=== PATIENT | female | born 1940 | race Two or more races ===

== ENCOUNTER 2021-10-20 00:19 | Emergency (ER) | payer OTHER ==
[~2021-10-20] VITALS: Ht 152.4 cm; Wt 88.0 kg
[2021-10-20 02:42] LABS: Basophils # (auto) 0.1 10 ^3/uL (0-0.2); Basophils % (auto) 1.5 % (0.0-2.0); Eosinophils # (auto) 0.1 10 ^3/uL (0-0.8); Hematocrit 43.3 % (36.0-46.0); Hemoglobin 14.8 g/dL (12.2-16.2); Lymphocytes # (auto) 1.5 10 ^3/uL (0.4-5.4); Lymphocytes % (auto) 22.7 % (10.0-50.0); Mean Corpuscular Hemoglobin 30.2 pg (28.0-32.0); Mean Corpuscular Hgb Conc. 34.1 g/dL (32.0-36.0); Mean Corpuscular Volume 88.6 fL (80.0-100.0); Monocytes # (auto) 0.4 10 ^3/uL (0-1.3); Monocytes % (auto) 6.9 % (0.0-12.0); Neutrophils # (auto) 4.3 10 ^3/uL (1.6-8.6); Neutrophils % (auto) 66.9 % (37.0-80.0); Nucleated Red Blood Cells % 0.1 %; Red Blood Cells 4.89 10^6/uL (4.0-5.20); Red Cell Distribution Width 12.7 % (11.8-14.3); White Blood Cell 6.5 10^3/uL (4.4-10.8)
[2021-10-20 03:00] LABS: Albumin 3.7 g/dL (3.4-5.0); BUN/Creatinine Ratio 24.4; Calcium 9.1 mg/dL (8.5-10.1); Potassium 3.4 mmol/L (3.5-5.1)
[2021-10-20 03:03] LABS: Bilirubin, Total 0.4 mg/dL (0.2-1.0); Total Protein 7.4 g/dL (6.4-8.2)
[2021-10-20 03:14] LABS: Urine Bacteria FEW /hpf (None Seen); Urine Blood Negative /uL (Negative); Urine Hyaline Cast FEW /lpf (0 - 2); Urine Mucus FEW (None Seen); Urine Specific Gravity 1.015 (1.001-1.035); Urine WBC 86 /hpf (0 - 5)
[2021-10-20] MEDS ORDERED: cefTRIAXone 1GM/50ML D5W 50 ML IV ONE (07:45)
[2021-10-20] MEDS ORDERED: POTASSIUM EFFERVESENT TAB 25 MEQ PO ONE (07:45)
[2021-10-20] MEDS ORDERED: SODIUM CHLORIDE 0.9% 1,000 ML IV ONE (07:45)
[2021-10-20] MEDS ORDERED: CIPR-173 PO (14:26)
[2021-10-20 14:28] VITALS: BP 138/65
== END 2021-10-20 14:52 | disposition home or self-care (01) ==
LOC: ER 00:19 → EDBD 00:19 → ER 14:52
DX: R55 Syncope and collapse (principal); N39.0 Urinary tract infection, site not specified; E87.6 Hypokalemia; R74.8 Abnormal levels of other serum enzymes; I10 Essential (primary) hypertension; E78.5 Hyperlipidemia, unspecified; E03.9 Hypothyroidism, unspecified; Z90.49 Acquired absence of other specified parts of digestive tract; Z90.710 Acquired absence of both cervix and uterus
CPT/HCPCS: 36415; 70450; 71045; 80053; 81001; 83735; 83880; 84484; 85025; 93005; 96365; 96366; 99285; J0696; J7030

== ENCOUNTER 2024-09-28 16:22 | Inpatient (IN) | payer OTHER ==
[~2024-09-28] VITALS: Ht 157.5 cm; Wt 81.4 kg
[~2024-09-28 16:22] MED LIST: CIPR-173 PO
--- NOTE | 2024-09-28 16:35 | ED.PDOC ---
GI ASSESSMENT HPI Comments This is an 84-year-old female who comes in with chief complaint of abdominal pain since this morning. The patient states that the symptoms started at approximately 9:30 a.m. this morning. She does have a history of this in the past. The pain is in the lower abdominal area and was a 10/10. It is associated with some nausea and vomiting but she denies any blood in her stool and she states that she has been having some constipation. EN route, the patient was given acetaminophen 1 g IV piggyback and the pain went from a 10 down to a 1/10. The patient was also given Zofran 4 mg IV push for the nausea EN route. The patient does have a history of diverticulitis and states that the symptoms feels somewhat similar. Chief Complaint: Abdominal Pain Time Seen by MD: 16:23 Reviewed Notes: Nurses Notes, Chucking And Boring Machine Operator Notes, Medications, Allergies (Allergies listed above) Allergies: Coded Allergies: Penicillins (Verified Allergy, Unknown, 10/20/21) Uncoded Allergies: IV contrast (Allergy, Unknown, 10/20/21) Home Meds Active Scripts Ciprofloxacin Hcl (Cipro) 500 Mg Tab, 1 TAB PO BID for 7 Days, #14 TAB Prov:KRISTOPHER HAYES MD 10/20/21 Information Source: Patient, Emergency Med Personnel Mode of Arrival: EMS Timing: Hours Duration: Since onset Prehospital treatment: Field Nurse Case Manager, IVF, Other (Zofran 4 mg IV push EN route as well as Tylenol 1 g IV piggyback EN route) Quality: Aching, Cramping Vomitus: Bilious Stool: Other (Constipation) Severity: Moderate Recent: None Recent Hx of: None Pain Location: RLQ, LLQ Modifying Factors: Nothing Associated sign and symptoms: Nausea, Vomiting, Constipation, Abdominal Pain Past Medical History PAST MEDICAL HISTORY: High Lipids, HTN, Thyroid Past Medical History (Other): History of diverticulitis Surgical History: Appendectomy, Cholecystectomy, , Hysterectomy Surgical History (Other): Cataract surgery INVENTORY CONTROLLER History: Denies all INVENTORY CONTROLLER Hx Family History Family History: Family hx of Cancer, Family hx of heart tania Social History Smoker: Non-Smoker Alcohol: Rarely Drugs: Denies Drug Use Lives In: Home Constitutional: denies: chills, diaphoresis, fatigue, fever, malaise, sweats, weakness, others EENTM: denies: blurred vision, double vision, ear bleeding, ear discharge, ear drainage, ear pain, ear ringing, eye pain, eye redness, hearing loss, mouth pain, mouth swelling, nasal discharge, nose bleeding, nose congestion, nose pain, photophobia, tearing, throat pain, throat swelling, voice changes, others Respiratory: denies: cough, hemoptysis, orthopnea, SOB at rest, shortness of breath, SOB with excertion, stridor, wheezing, others Cardiovascular: denies: chest pain, dizzy spells, diaphoresis, Dyspnea on exertion, edema, irregular heart beat, left arm pain, lightheadedness, p alpitations, PND, syncope, others Gastrointestinal: reports: abdominal pain, constipated, nausea, vomiting; denies: abdomen distended, blood streaked bowels, diarrhea, dysphagia, difficulty swallowing, hematemesis, melena, poor appetite, poor fluid intake, rectal bleeding, rectal pain, others Genitourinary: denies: abnormal vagina bleeding, burning, dyspareunia, dysuria, flank pain, frequency, hematuria, incontinence, pain, , vagina discharge, urgency, others Neurological: denies: dizziness, fainting, headache, left sided numbness, left sided weakness, numbness, paresthesia, pre-existing deficit, right sided numbness, right sided weakness, seizure, speech problems, tingling, tremors, weakness, others Musculoskeletal: denies: back pain, gout, joint pain, joint swelling, muscle pain, muscle stiffness, neck pain, others Integumetry: denies: bruises, change in color, change in hair/nails, dryness, laceration, lesions, lumps, rash, wounds, others Allergic/Immunocompromised: denies: Difficulty Healing, Frequent Infections, Hives, Itching, others Hematologic/Lymphatic: denies: anemia, blood clots, easy bleeding, easy bruising, swollen glands, others Endocrine: denies: excessive hunger, excessive sweating, excessive thirst, excessive urination, flushing, intolerance to cold, intolerance to heat, unexplained weight gain, unexplained weight loss, others Psychiatric: denies: anxiety, bipolar disorder, depression, hopeless, panic disorder, schizophrenia, sleepless, suicidal, others Physical Exam General Appearance: Moderate Distress HEENT: Normal ENT Inspection, Pharynx Normal, TMs Normal Neck: Full Range of Motion, Non-Tender, Normal, Normal Inspection Respiratory: Chest Non-Tender, Lungs Clear, No Accessory Muscle Use, No Respiratory Distress, Normal Breath Sounds Cardiovascular: No Edema, No JVD, No Murmur, No Gallop, Normal Peripheral Pulses, Regular Rate/Rhythm Breast Exam: Deferred Gastrointestinal: LLQ, No Organomegaly, No Pulsatile Mass, Normal Bowel Sounds, RLQ, Soft, Tenderness Genitalia: Deferred Pelvic: Deferred Rectal: Deferred Extremities: No calf tenderness, Normal capillary refill, Pedal edema Musculoskeletal : Apperance: Normal Neurologic: Alert, editor managing newspaper II-XII nml as Tested, Motor Weakness, Normal Affect, Normal Mood, No Sensory Deficits Cerebellar Function: Normal Reflexes: Normal Skin: Dry, Normal Color, Warm Lymphatic: No Adenopathy Was a procedure done? Was a procedure done?: No GI differential Dx Differential Diagnosis: Diverticular disease, Gastritis/PUD, Gastroenteritis, UTI X-Ray, Labs, Meds, VS Vital Signs Date Time Temp Pulse Resp B/P (MAP) Pulse Ox O2 Delivery O2 Flow Rate FiO2 09/28/24 16:36 97.8 58 18 141/80 96 97.8 Lab Test 09/28/24 16:53 09/28/24 16:52 Range/Units White Blood Count 8.8 4.4-10.8 10^3/uL Red Blood Count 5.61 H 4.0-5.20 10^6/uL Hemoglobin 17.4 H 12.2-16.2 g/dL Hematocrit 50.4 H 36.0-46.0 % Mean Corpuscular Volume 89.9 80.0-100.0 fL Mean Corpuscular Hemoglobin 31.1 28.0-32.0 pg Mean Corpuscular Hemoglobin Concent 34.6 32.0-36.0 g/dL Red Cell Distribution Width 13.2 11.8-14.3 % Platelet Count 175 140-450 10^3/uL Mean Platelet Volume 9.0 6.9-10.8 fL Neutrophils (%) (Auto) 85.0 H 37.0-80.0 % Lymphocytes (%) (Auto) 9.5 L 10.0-50.0 % Monocytes (%) (Auto) 4.7 0.0-12.0 % Eosinophils (%) (Auto) 0.3 0.0-7.0 % Basophils (%) (Auto) 0.5 0.0-2.0 % Neutrophils # (Auto) 7.5 1.6-8.6 10 ^3/uL Lymphocytes # (Auto) 0.8 0.4-5.4 10 ^3/uL Monocytes # (Auto) 0.4 0-1.3 10 ^3/uL Eosinophils # (Auto) 0 0-0.8 10 ^3/uL Basophils # (Auto) 0 0-0.2 10 ^3/uL Nucleated Red Blood Cells 0.1 % Sodium Level 142 136-145 mmol/L Potassium Level 3.8 3.5-5.1 mmol/L Chloride Level 104 98-107 mmol/L Carbon Dioxide Level 22 20-31 mmol/L Anion Gap 16 H 5-15 Blood Urea Nitrogen 15 9-23 mg/dL Creatinine 1.11 H 0.550-1.02 mg/dL Glomerular Filtration Rate Calc 49 >90 mL/min BUN/Creatinine Ratio 13.5 10.0-20.0 Serum Glucose 163 H 74-106 mg/dL Calcium Level 10.6 H 8.7-10.4 mg/dL Total Bilirubin 0.8 0.2-1.0 mg/dL Aspartate Amino Transferase (AST) 46 H 13-40 U/L Alanine Aminotransferase (ALT) 62 H 7-40 U/L Alkaline Phosphatase 157 H 46-116 U/L Total Protein 7.7 5.7-8.2 g/dL Albumin 5.1 H 3.2-4.8 g/dL Prothrombin Time 11.4 9.3-11.8 sec Prothrombin Time INR 1.08 0.9-1.15 Activated Partial Thromboplast Time 30.8 24.5-34.5 SEC 1. Diffuse wall thickening of the rectosigmoid colon. Correlate for colitis. 2. Subtle nodular contour of the liver may reflect cirrhosis. 3. 1.2 cm hypodense lesion in the pancreatic body may reflect an IPMN. Consider further evaluation with contrast-enhanced MRI as clinically indicated. IV Hep-Lock was established. The CBC is within normal limits. The chemistry panel shows elevated liver enzymes The patient is being admitted at this time with a diagnosis of intractable abdominal pain and colitis Images Reviewed?: Images reviewed and evaluated by me Time of 1ST Reevaluation: 16:35 Reevaluation 1ST: Unchanged Patient Education/Counseling: Diagnosis, Treatment, Prognosis Family Education/Counseling: No Family Present SEPSIS Sepsis Screen Physician Orders Urinalysis (09/28/24 16:28) Ct Ab Pel Wo Con-No Oral Or Iv (09/28/24 16:28) Heplock Iv (09/28/24 16:28) Field Nurse Case Manager (09/28/24 16:28) Blood Pressure (09/28/24 16:28) Pulse Oximetry (09/28/24 16:28) Electrocardigram (09/28/24 16:28) Vital Signs Date Time Temp Pulse Resp B/P (MAP) Pulse Ox O2 Delivery O2 Flow Rate FiO2 09/28/24 16:36 97.8 58 18 141/80 96 97.8 Laboratory Tests Test 09/28/24 16:53 White Blood Count 8.8 10^3/uL (4.4-10.8) Departure 1 Departure Time of Disposition: 17:35 Impression: Primary Impression: Intractable abdominal pain Additional Impressions: Colitis Elevated liver enzymes Disposition: ADMITTED INPATIENT Admit to: Med Surg Condition: Fair Critical Care Note Critical Care Time?: No Stability Stability form required: Yes Unstable for transfer: ED Physician Assesment (Clinical assesment) Heart Score Heart Score: Heart Score Response (Comments) Value History N/A 0 EKG N/A 0 Age N/A 0 Risk Factors N/A 0 Troponin N/A 0 Total 0 I personally scribed for EBONY QUARLES MD ([email or web address]) on 09/28/24 at 17:17. Electronically submitted by Kristen DunlapMISS[facility]). EBONY QUARLES MD Sep 28, 2024 16:35
--- NOTE | 2024-09-28 17:07 | DVH ---
Exam: CT CT AB PEL WO CON-NO ORAL OR IV History: pain Comparison Study: None TECHNIQUE: Multidetector CT of the abdomen and pelvis was performed from lung bases to pubic symphysi s. Imaging was performed without IV contrast. Axial, coronal, and sagittal multiplanar reformats were obtained from the axial data set by the technologist. RADIATION DOSE: DLP 624.14 mGy.cm; CTDI vol 13.2 mGy. Findings: Lungs: The lung bases are clear. Heart: No cardiomegaly or pericardial effusion. Liver: Subtle nodular contour of the liver. Gallbladder: Unremarkable. Spleen: Unremarkable Pancreas: 1.2 cm hypodense lesion in the pancreatic body (axial image 28) Adrenals: Unremarkable Kidneys: Unremarkable GI tract: Diffuse wall thickening of the rectosigmoid colon with minimal inflammatory changes. Divert iculosis. : Unremarkable. Vasculature: Mild aortoiliac atherosclerosis. Lymphadenopathy: Absent Peritoneum: No ascites Musculoskeletal: Mild multilevel degenerative changes of the thoracolumbar spine. Soft tissues: Unremarkable Impression: 1. Diffuse wall thickening of the rectosigmoid colon. Correlate for colitis. 2. Subtle nodular contour of the liver may reflect cirrhosis. 3. 1.2 cm hypodense lesion in the pancreatic body may reflect an IPMN. Consider further evaluation w ith contrast-enhanced MRI as clinically indicated.
[2024-09-28 17:08] LABS: Hematocrit 50.4 % (36.0-46.0); Hemoglobin 17.4 g/dL (12.2-16.2); Mean Corpuscular Hemoglobin 31.1 pg (28.0-32.0); Mean Corpuscular Volume 89.9 fL (80.0-100.0); Nucleated Red Blood Cells % 0.1 %
[2024-09-28 17:19] LABS: INR 1.08 (0.9-1.15); Partial Thromboplastin Time 30.8 SEC (24.5-34.5); Prothrombin Time 11.4 sec (9.3-11.8)
[2024-09-28 17:22] LABS: Alanine Aminotransferase 62 U/L (7-40); Albumin 5.1 g/dL (3.2-4.8); Alkaline Phosphatase 157 U/L (46-116); Anion Gap 16 (5-15); BUN/Creatinine Ratio 13.5 (10.0-20.0); Bilirubin, Total 0.8 mg/dL (0.2-1.0); Blood Urea Nitrogen 15 mg/dL (9-23); Calcium 10.6 mg/dL (8.7-10.4); Carbon Dioxide 22 mmol/L (20-31); Chloride 104 mmol/L (98-107); Glucose 163 mg/dL (74-106); Potassium 3.8 mmol/L (3.5-5.1); Sodium 142 mmol/L (136-145); Total Protein 7.7 g/dL (5.7-8.2)
[2024-09-28] MEDS: PANTOPRAZOLE 40 MG/10 ML VIAL INJ IV ONE (18:14)
[2024-09-28] MEDS ORDERED: MORPHINE SULFATE INJ 2 MG/ml SYRG IV PRN ×2 (18:15)
[2024-09-28] MEDS: SODIUM CHLORIDE 0.9% 1,000 ML IV SCH (18:15)
[2024-09-28] MEDS ORDERED: NITROGLYCERIN 0.4 MG SL TAB SL PRN (18:15)
[2024-09-28] MEDS ORDERED: HYDROcodone-ACET 5/325MG TAB PO PRN (18:15)
[2024-09-28] MEDS ORDERED: ONDANSETRON HCL 4 MG/2 ML VIAL IV PRN (18:15)
--- NOTE | 2024-09-28 18:26 | DVHHP2 ---
History of Present Illness Reason for Visit: Abdominal pain associated with the nausea and vomiting History of Present Illness 84-year-old female with a known history of hypertension, dyslipidemia who has a abdominal pain on and off for months. No presented to the hospital with the abdominal pain in the lower part associated with the nausea and vomiting found to have rectosigmoid diverticulitis. Patient is currently denies any nausea and vomiting complaining of minimal discomfort denies any fevers chills. Denies any hematemesis or melena. Cardiovascular: HTN, hyperipidemia Endocrine: Hypothyroidism Past Surgical History: Cholecystectomy, Cataract Removal, Hysterectomy Family History: None Smoke: No ALCOHOL: none Review of Systems Review of Systems Twelve review of system are negative besides mentioned above. Allergies: Coded Allergies: Penicillins (Verified Allergy, Unknown, 10/20/21) Uncoded Allergies: IV contrast (Allergy, Unknown, 10/20/21) Exam Vital Signs Vital Signs Date Time Temp Pulse Resp B/P (MAP) Pulse Ox O2 Delivery O2 Flow Rate FiO2 09/28/24 16:36 97.8 58 18 141/80 96 97.8 Exam HEENT pupils are reactive Neck is supple CV is S1-S2 regular rate and rhythm Respiratory are clear GI positive bowel sound Extremity no edema DINING ROOM HOSTESS no motor deficit Labs/Xrays Labs Test 09/28/24 16:53 09/28/24 16:52 Range/Units White Blood Count 8.8 4.4-10.8 10^3/uL Red Blood Count 5.61 H 4.0-5.20 10^6/uL Hemoglobin 17.4 H 12.2-16.2 g/dL Hematocrit 50.4 H 36.0-46.0 % Mean Corpuscular Volume 89.9 80.0-100.0 fL Mean Corpuscular Hemoglobin 31.1 28.0-32.0 pg Mean Corpuscular Hemoglobin Concent 34.6 32.0-36.0 g/dL Red Cell Distribution Width 13.2 11.8-14.3 % Platelet Count 175 140-450 10^3/uL Mean Platelet Volume 9.0 6.9-10.8 fL Neutrophils (%) (Auto) 85.0 H 37.0-80.0 % Lymphocytes (%) (Auto) 9.5 L 10.0-50.0 % Monocytes (%) (Auto) 4.7 0.0-12.0 % Eosinophils (%) (Auto) 0.3 0.0-7.0 % Basophils (%) (Auto) 0.5 0.0-2.0 % Neutrophils # (Auto) 7.5 1.6-8.6 10 ^3/uL Lymphocytes # (Auto) 0.8 0.4-5.4 10 ^3/uL Monocytes # (Auto) 0.4 0-1.3 10 ^3/uL Eosinophils # (Auto) 0 0-0.8 10 ^3/uL Basophils # (Auto) 0 0-0.2 10 ^3/uL Nucleated Red Blood Cells 0.1 % Sodium Level 142 136-145 mmol/L Potassium Level 3.8 3.5-5.1 mmol/L Chloride Level 104 98-107 mmol/L Carbon Dioxide Level 22 20-31 mmol/L Anion Gap 16 H 5-15 Blood Urea Nitrogen 15 9-23 mg/dL Creatinine 1.11 H 0.550-1.02 mg/dL Glomerular Filtration Rate Calc 49 >90 mL/min BUN/Creatinine Ratio 13.5 10.0-20.0 Serum Glucose 163 H 74-106 mg/dL Calcium Level 10.6 H 8.7-10.4 mg/dL Total Bilirubin 0.8 0.2-1.0 mg/dL Aspartate Amino Transferase (AST) 46 H 13-40 U/L Alanine Aminotransferase (ALT) 62 H 7-40 U/L Alkaline Phosphatase 157 H 46-116 U/L Total Protein 7.7 5.7-8.2 g/dL Albumin 5.1 H 3.2-4.8 g/dL Prothrombin Time 11.4 9.3-11.8 sec Prothrombin Time INR 1.08 0.9-1.15 Activated Partial Thromboplast Time 30.8 24.5-34.5 SEC SEPSIS Sepsis Screen Date sepsis recognized/suspect: Sep 28, 2024 Time Sepsis recognized/suspect: 1624 Recent Procedure: No On Antibiotic Therapy: No Respiratory Rate >20: No Heart Rate >90: No Temp<36 C (96.8 F) or >38.3 C: No SBP <90 or MAP <65 mmHG: No New Acute Mental Status Change: No Is the patient on CPAP, BIPAP,: No Physician Orders Urinalysis (09/28/24 16:28) Ct Ab Pel Wo Con-No Oral Or Iv (09/28/24 16:28) Heplock Iv (09/28/24 16:28) Mix House Tender (09/28/24 16:28) Blood Pressure (09/28/24 16:28) Pulse Oximetry (09/28/24 16:28) Electrocardigram (09/28/24 16:28) Admit (09/28/24 18:15) Code Status (09/28/24 18:15) 0.9% Ns 1000 Ml (09/28/24 18:15) Hydrocodone-Acet 5/325mg Tab ([place] /32 (09/28/24 18:15) Ondansetron Hcl (Zofran) (09/28/24 18:15) Complete Blood Count (09/29/24 04:00) Comprehensive Metabolic Panel (09/29/24 04:00) Pt Request For Service (09/28/24 18:15) Condition: Stable (09/28/24 18:15) Enoxaparin Sodium (Lovenox) (09/29/24 10:00) Acetaminophen Tablet (Tylenol Tablet) (09/28/24 18:15) Clear Liq Diet (09/28/24 Dinner) Morphine Sulfate Injection (09/28/24 18:15) Nitroglycerin Sublingual (Ntrostat Subli (09/28/24 18:15) Morphine Sulfate Injection (09/28/24 18:15) Stat Ekg For Chest Pain (09/28/24 18:15) Notify Md Of Changes From Base (09/28/24 18:15) Store Stocker For 24 Hours (09/28/24 18:15) Emergency Dysrhythmia Protocol (09/28/24 18:15) Rhythm Strips Once Every Shift (09/28/24 18:15) Oxygen By Nasal Cannula (09/28/24 18:15) Ceftriaxone Ivpb Rocephin (09/29/24 09:00) Metronidazole Ivpb Flagyl (09/28/24 22:00) * Gi Dvh End Packer (09/28/24 18:15) Vital Signs Date Time Temp Pulse Resp B/P (MAP) Pulse Ox O2 Delivery O2 Flow Rate FiO2 09/28/24 16:36 97.8 58 18 141/80 96 97.8 Laboratory Tests Test 09/28/24 16:53 White Blood Count 8.8 10^3/uL (4.4-10.8) Medications Medications Dose Ordered Sig/Steven Route Start Time Stop Time Status Last Admin Dose Admin Pantoprazole Sodium 40 mg ONCE ONCE IV 09/28/24 16:30 09/28/24 16:31 DC 09/28/24 18:14 40 MG Assessment/Plan Assessment/Plan 84-year-old female with a known history of hypertension, dyslipidemia, hypothyroidism initially presented to the hospital with the abdominal pain associated with the nausea and vomiting found t have 1. Acute rectosigmoid diverticulitis 2. Abdominal pain with the nausea secondary to 1. 3. Incidental finding of pancreatic body mass 1.2 cm with a hypodense ruled out IPMN 4. Hypertension 5. Dyslipidemia 6. Hypothyroidism 7. Transaminitis -clear liquid diet, IV antibiotics, GI consultation -MRI abdomen without contrast to evaluate pancreatic body mass. Plan discussed with: Patient My Orders Orders - MARICHUY RG MD Procedure Category Date Status Time Admit ADMIT 09/28/24 Transmitted 18:15 Code Status CODE 09/28/24 Transmitted 18:15 0.9% Ns 1000 Ml PHA 09/28/24 Transmitted 18:15 Hydrocodone-Acet PHA 09/28/24 Transmitted 5/325mg Tab ([place] 18:15 Ondansetron Hcl PHA 09/28/24 Transmitted (Zofran) 18:15 Complete Blood Count LAB 09/29/24 Verified 04:00 Comprehensive LAB 09/29/24 Verified Metabolic Panel 04:00 Pt Request For Service PT 09/28/24 Transmitted 18:15 Condition: Stable ANGELINE 09/28/24 Transmitted 18:15 Enoxaparin Sodium PHA 09/29/24 Transmitted (Lovenox) 10:00 Acetaminophen Tablet PHA 09/28/24 Transmitted (Tylenol Tablet) 18:15 Clear Liq Diet DIET 09/28/24 Transmitted Dinner Morphine Sulfate PHA 09/28/24 Transmitted Injection 18:15 Nitroglycerin PHA 09/28/24 Transmitted Sublingual (Ntrostat 18:15 Morphine Sulfate PHA 09/28/24 Transmitted Injection 18:15 Stat Ekg For Chest ANGELINE 09/28/24 Transmitted Pain 18:15 Notify Of Changes [facility] 09/28/24 Transmitted From Base 18:15 Store Stocker For [facility] 09/28/24 Transmitted 24 Hours 18:15 Emergency Dysrhythmia [facility] 09/28/24 Transmitted Protocol 18:15 Rhythm Strips Once [facility] 09/28/24 Transmitted Every Shift 18:15 Oxygen By Nasal RT 09/28/24 Transmitted Cannula 18:15 Ceftriaxone Ivpb [facility] 09/29/24 Transmitted Rocephin 09:00 Metronidazole Ivpb [facility] 09/28/24 Transmitted Flagyl 22:00 * Gi Dvh End Packer CONS 09/28/24 Transmitted 18:15 Problem List: (1) Colitis (2) Elevated liver enzymes (3) Intractable abdominal pain Date of Service: Sep 28, 2024 Billing Provider: MARICHUY RG MD Common Visit Codes: NOT BILLABLE MARICHUY RG MD Sep 28, 2024 18:26
[2024-09-28] MEDS: ACETAMINOPHEN 325 MG TAB PO PRN (18:56)
[2024-09-28 22:32] VITALS: PULSE 58; RESP 16; O2SAT 96
[2024-09-29] VITALS (11 sets, daily range): BP systolic 129–173; BP diastolic 59–95; PULSE 54–78; RESP 12–19; TEMP 97.9–98.6; O2SAT 65–100
[2024-09-29] MEDS: LISINOPRIL 20 MG TAB PO SCH (00:07)
[2024-09-29] MEDS ORDERED: POTA-36 PO (03:11)
[2024-09-29] MEDS ORDERED: ROSU10TA16 PO (03:11)
[2024-09-29] MEDS ORDERED: LEVO-848 PO (03:11)
[2024-09-29] MEDS ORDERED: FELO10TA28 PO (03:11)
[2024-09-29] MEDS ORDERED: ATE50T PO (03:11)
[2024-09-29] MEDS ORDERED: LISI40TA16 PO (03:11)
[2024-09-29] MEDS ORDERED: TRIA75TA11 PO (03:11)
[2024-09-29] MEDS ORDERED: FAMO10TA41 PO (03:11)
[2024-09-29 06:30] LABS: Hematocrit 42.7 % (36.0-46.0); Hemoglobin 15.2 g/dL (12.2-16.2); Mean Corpuscular Hemoglobin 31.5 pg (28.0-32.0); Mean Corpuscular Volume 88.3 fL (80.0-100.0); Nucleated Red Blood Cells % 0.1 %
[2024-09-29 06:48] LABS: Anion Gap 12 (5-15); BUN/Creatinine Ratio 18.8 (10.0-20.0); Blood Urea Nitrogen 15 mg/dL (9-23); Calcium 9.8 mg/dL (8.7-10.4); Carbon Dioxide 25 mmol/L (20-31); Chloride 104 mmol/L (98-107); Potassium 3.6 mmol/L (3.5-5.1); Sodium 141 mmol/L (136-145); Total Protein 6.6 g/dL (5.7-8.2)
[2024-09-29 06:49] LABS: Albumin 4.2 g/dL (3.2-4.8)
[2024-09-29 06:50] LABS: Bilirubin, Total 0.8 mg/dL (0.2-1.0)
[2024-09-29 06:52] LABS: Alanine Aminotransferase 43 U/L (7-40); Alkaline Phosphatase 125 U/L (46-116); Glucose 108 mg/dL (74-106)
[2024-09-29] MEDS: ENOXAPARIN SOD 40 MG/0.4 ML SYRINGE SC SCH (09:22)
[2024-09-29] MEDS: cefTRIAXone 1GM/50ML D5W 50 ML IV SCH (09:23)
[2024-09-29 12:47] LABS: Urine Protein, UAD Negative (Negative)
[2024-09-29] MEDS ORDERED: GADOTERATE MEG 10 MMOL/20ml INJ (0.5MMOL/ml) IV ONE ×2 (13:12→13:50)
--- NOTE | 2024-09-29 14:11 | DVHINCON2 ---
GI Consult Consult Note GI consult note Date of Consultation: 09/29 Chief Complaint: Sigmoid diverticulitis Referring Physician: Dr. Vu H&P: 84-year-old female is admitted with complains of abdominal pain for two days. Mostly patient has pain in her lower abdomen and suprapubic area. Patient complains of nausea and vomiting yesterday, mostly threw up coffee and toast that she ate. Denies hematemesis. Patient denies any loose stool. No melena or red blood in stool. Last colonoscopy 2-3 years ago and diagnosed with diverticulosis. Patient admits to weight loss of six months in the last few months Past Medical History: High Lipids, HTN, Thyroid History of diverticulitis Past Surgical History: Appendectomy, Cholecystectomy, , Hysterectomy, cataract surgery Social History: NO smoking, drinking ETOH and use of illegal drugs. Family History: Noncontributory Review of Systems: Constitutional: no fever, chill, weight loss HEENT: no eye pain, no hearing loss, no oral lesion, no scleral icterus Heart: no chest pain, no chest pressure Lung: no cough, no dyspnea with exertion Abdomen: see HPI Physical exam: General: NAD, AAOX3 Chest: lung carlos clear to auscultation Heart: RRR, no murmur Abdomen: non-distended, mild lower abdomen tenderness to palpation, +BS Labs: Labs Test 09/29/24 05:37 09/28/24 16:52 09/28/24 12:30 Range/Units White Blood Count 8.3 4.4-10.8 10^3/uL Red Blood Count 4.84 4.0-5.20 10^6/uL Hemoglobin 15.2 12.2-16.2 g/dL Hematocrit 42.7 # 36.0-46.0 % Mean Corpuscular Volume 88.3 80.0-100.0 fL Mean Corpuscular Hemoglobin 31.5 28.0-32.0 pg Mean Corpuscular Hemoglobin Concent 35.7 32.0-36.0 g/dL Red Cell Distribution Width 12.7 11.8-14.3 % Platelet Count 164 140-450 10^3/uL Mean Platelet Volume 9.4 6.9-10.8 fL Neutrophils (%) (Auto) 69.2 37.0-80.0 % Lymphocytes (%) (Auto) 22.4 10.0-50.0 % Monocytes (%) (Auto) 6.7 0.0-12.0 % Eosinophils (%) (Auto) 0.5 0.0-7.0 % Basophils (%) (Auto) 1.2 0.0-2.0 % Neutrophils # (Auto) 5.7 1.6-8.6 10 ^3/uL Lymphocytes # (Auto) 1.9 0.4-5.4 10 ^3/uL Monocytes # (Auto) 0.6 0-1.3 10 ^3/uL Eosinophils # (Auto) 0 0-0.8 10 ^3/uL Basophils # (Auto) 0.1 0-0.2 10 ^3/uL Nucleated Red Blood Cells 0.1 % Sodium Level 141 136-145 mmol/L Potassium Level 3.6 3.5-5.1 mmol/L Chloride Level 104 98-107 mmol/L Carbon Dioxide Level 25 20-31 mmol/L Anion Gap 12 5-15 Blood Urea Nitrogen 15 9-23 mg/dL Creatinine 0.80 0.550-1.02 mg/dL Glomerular Filtration Rate Calc 73 >90 mL/min BUN/Creatinine Ratio 18.8 10.0-20.0 Serum Glucose 108 H 74-106 mg/dL Calcium Level 9.8 8.7-10.4 mg/dL Total Bilirubin 0.8 0.2-1.0 mg/dL Aspartate Amino Transferase (AST) 33 13-40 U/L Alanine Aminotransferase (ALT) 43 H 7-40 U/L Alkaline Phosphatase 125 H 46-116 U/L Total Protein 6.6 5.7-8.2 g/dL Albumin 4.2 3.2-4.8 g/dL Prothrombin Time 11.4 9.3-11.8 sec Prothrombin Time INR 1.08 0.9-1.15 Activated Partial Thromboplast Time 30.8 24.5-34.5 SEC Urine Color Yellow Yellow Urine Clarity Clear Clear Urine pH 6.0 5.0-9.0 Urine Specific Randall 1.019 1.001-1.035 Urine Protein Negative Negative Urine Ketones Negative Negative Urine Blood Negative Negative /uL Urine Nitrite Negative Negative Urine Bilirubin Negative Negative Urine Urobilinogen Normal Negative mg/dL Urine Leukocyte Esterase Trace Negative /uL Urine RBC 1 0 - 4 /hpf Urine Microscopic WBC 3 0-5 /HPF Urine Squamous Epithelial Cells None seen <5 /hpf Urine Bacteria None seen None Seen /hpf Urine Glucose Normal Normal mg/dL Imaging: CT abdomen pelvis Impression: 1. Diffuse wall thickening of the rectosigmoid colon. Correlate for colitis. 2. Subtle nodular contour of the liver may reflect cirrhosis. 3. 1.2 cm hypodense lesion in the pancreatic body may reflect an IPMN. Consider further evaluation with contrast-enhanced MRI as clinically indicated. Assessment: Abdominal pain Possible colitis 1.2 cm hypodense lesion of the pancreatic body History of diverticulitis Plan: Discussed with Dr. Rivera Mri abdomen pending Labs for CEA, CA 19-9, AFP Stool for WBC and culture NPO after midnight Possible sigmoidoscopy tomorrow if patient's symptoms persist and based on the above results Discussed plan with patient and RN and patient Date of Service: Sep 29, 2024 Billing Provider: GEMINI MUÑOZ Common Visit Codes: CONSULT ONLY Consultation Codes: [id number] CONSULT <60MIN GEMINI MUÑOZ Sep 29, 2024 14:11
--- NOTE | 2024-09-29 21:51 | DVH ---
CLINICAL HISTORY: ABNORMAL CT R/O PANC MASS TECHNIQUE: MRI and MRCP of the abdomen was performed without gadolinium. 3D reconstructed images wer e created under concurrent radiologist supervision and archived on the PACS system. WID: COMPARISON: CT CT AB PEL WO CON-NO ORAL OR IV on DOS: 09/28/24 FINDINGS: Lower Thorax: Normal-sized heart. No pleural effusion. Liver and Biliary system: Normal-sized liver. There is hepatic steatosis. Tiny cyst in segment 6/7 o n series 4, image 15. There is no intrahepatic bile duct dilatation. Prior cholecystectomy. Spleen: Unremarkable. Adrenal Glands and Kidneys: Normal adrenal glands. Tiny bilateral renal cysts. No hydronephrosis. Pancreas and Retroperitoneum: There is a well-defined cystic lesion in the body of the pancreas measu ring 1.5 cm on series 3, image 19. Communication with the main pancreatic duct is not demonstrated al though there appears to be communication with a side branch of the main pancreatic duct as seen on se adal 2, image 18. The pancreatic duct is normal caliber. No retroperitoneal lymphadenopathy. Aorta and Major Vessels: Atherosclerotic plaque in the normal caliber abdominal aorta. Bowel, Mesentery and Peritoneal space: Normal caliber small and large bowel. Mild colonic diverticulo sis. Trace ascites. There appears to be wall thickening and soft tissue stranding surrounding the vis ualized distal descending colon. Abdominal wall and Osseous Structures: No acute abnormality. Multilevel lower thoracic and lumbar sp ondylosis. IMPRESSION: Well-defined cystic lesion in the body of the pancreas. Although direct communication with the pancr eatic duct is not demonstrated there appears to be communication with a side branch of the main pancr eatic duct. This is favored to reflect IPMN versus chronic pseudocyst. Neoplasm less likely. Mild wall thickening of the distal descending colon with surrounding soft tissue stranding and edema. DDX includes colitis or diverticulitis. Hepatic steatosis. Mild colonic diverticulosis.
[2024-09-30 01:00] VITALS: BP 159/66; PULSE 65; RESP 16; TEMP 98.4; O2SAT 95
[2024-09-30] MEDS: hydrALAZINE HCL 20 MG/ML VL IV PRN (01:50)
[2024-09-30 05:00] VITALS: BP 151/63; PULSE 69; RESP 16; TEMP 98.3; O2SAT 95
[2024-09-30 08:00] VITALS: PULSE 62; PULSE 67; RESP 17
[2024-09-30 08:42] VITALS: BP 148/63; PULSE 70; RESP 18; TEMP 98.3; O2SAT 95
--- NOTE | 2024-09-30 16:06 | DVHPN2 ---
Subjective Patient is currently tolerating clear liquid diet, advance to full liquid diet. Changes from previous H/P or p: No Changes Objective Vitals Vital Signs Date Time Temp Pulse Resp B/P (MAP) Pulse Ox O2 Delivery O2 Flow Rate FiO2 09/30/24 08:45 148/63 09/30/24 08:42 98.3 70 18 95 98.3 09/30/24 08:00 Room Air* 0 21 Intake/Output Intake and Output 09/30/24 07:00 Intake Total 1250 ml Balance 1250 ml Intake Oral 1050 ml IV Total 200 ml # Voids 4 # Bowel Movements 1 Exam HEENT pupils are reactive Neck is supple CV is S1-S2 regular rate and rhythm Respiratory bilateral clear GI positive bowel sounds soft nondistended nontender no guarding no rigidity Extremity no edema DECALER no motor deficit. Medications Current Medications Medications Dose Ordered Sig/Steven Route Start Time Stop Time Status Last Admin Dose Admin Sodium Chloride 1,000 ml @ 120 mls/hr Q8H20M IV 09/28/24 18:15 09/30/24 11:55 120 MLS/HR Acetaminophen/ Hydrocodone Bitart 1 tab Q4HP PRN PO 09/28/24 18:15 Ondansetron HCl 4 mg Q4HP PRN IV 09/28/24 18:15 Enoxaparin Sodium 40 mg DAILY SC 09/29/24 10:00 09/30/24 08:44 40 MG Acetaminophen 650 mg Q6HP PRN PO 09/28/24 18:15 09/30/24 06:55 650 MG Morphine Sulfate 2 mg Q4HPRN PRN IV 09/28/24 18:15 Nitroglycerin 0.4 mg Q5MINP PRN SL 09/28/24 18:15 Morphine Sulfate 2 mg Q30M PRN IV 09/28/24 18:15 Ceftriaxone Sodium 50 ml @ 100 mls/hr DAILY@09 IV 09/29/24 09:00 09/30/24 08:44 100 MLS/HR Metronidazole 100 ml @ 100 mls/hr Q8HR IV 09/28/24 22:00 09/30/24 13:28 100 MLS/HR Lisinopril 40 mg DAILY PO 09/28/24 23:45 09/30/24 08:45 40 MG Hydralazine HCl 10 mg Q6HP PRN IV 09/28/24 23:45 09/30/24 01:50 10 MG Laboratory Results Laboratory Tests 09/29/24 05:37 Urinalysis Test 09/28/24 12:30 Urine Color Yellow (Yellow) Urine Clarity Clear (Clear) Urine pH 6.0 (5.0-9.0) Urine Specific [place] 1.019 (1.001-1.035) Urine Protein Negative (Negative) Urine Ketones Negative (Negative) Urine Blood Negative /uL (Negative) Urine Nitrite Negative (Negative) Urine Bilirubin Negative (Negative) Urine Urobilinogen Normal mg/dL (Negative) Urine Leukocyte Esterase Trace /uL (Negative) Urine RBC 1 /hpf (0 - 4) Urine Microscopic WBC 3 /HPF (0-5) Urine Squamous Epithelial Cells None seen /hpf (<5) Urine Bacteria None seen /hpf (None Seen) Urine Glucose Normal mg/dL (Normal) Assessment/Plan Assessment/Plan 84-year-old female with a known history of hypertension, dyslipidemia, hypothyroidism initially presented to the hospital with the abdominal pain associated with the nausea and vomiting found t have 1. Acute rectosigmoid diverticulitis 2. Abdominal pain with the nausea secondary to 1. 3. Incidental finding of pancreatic body mass 1.2 cm with a hypodense ruled out IPMN 4. Hypertension 5. Dyslipidemia 6. Hypothyroidism 7. Transaminitis -clear liquid diet, advanced as tolerated, IV antibiotics, GI consultation -MRI abdomen without contrast to evaluate pancreatic body mass which is likely IPMN Plan discussed with: Patient My Orders Orders - MARICHUY RG MD Procedure Category Date Status Time Full Liq Diet DIET 09/30/24 Transmitted Dinner Date of Service: Sep 29, 2024 Billing Provider: MARICHUY RG MD Common Visit Codes: NOT BILLABLE MARICHUY RG MD Sep 30, 2024 16:06
[2024-09-30] MEDS ORDERED: CEPH500C PO (16:07)
[2024-09-30] MEDS ORDERED: METR-344 PO (16:07)
--- NOTE | 2024-09-30 16:12 | DVHDS2 ---
Discharge Summary Date of Admission Sep 28, 2024 at 18:15 Date of Discharge: Sep 30, 2024 Labs/Diagnostic Data: Laboratory Results Test 09/29/24 15:00 09/29/24 05:37 09/28/24 16:52 09/28/24 12:30 Tumor Marker Alpha Fetoprotein 6.2 ng/mL (0.0-8.7) Carcinoembryonic Antigen 1.51 ng/mL (<=5.0) CA 19-9 Antigen 14 U/mL (0-35) White Blood Count 8.3 10^3/uL (4.4-10.8) Red Blood Count 4.84 10^6/uL (4.0-5.20) Hemoglobin 15.2 g/dL (12.2-16.2) Hematocrit 42.7 % (36.0-46.0) Mean Corpuscular Volume 88.3 fL (80.0-100.0) Mean Corpuscular Hemoglobin 31.5 pg (28.0-32.0) Mean Corpuscular Hemoglobin Concent 35.7 g/dL (32.0-36.0) Red Cell Distribution Width 12.7 % (11.8-14.3) Platelet Count 164 10^3/uL (140-450) Mean Platelet Volume 9.4 fL (6.9-10.8) Neutrophils (%) (Auto) 69.2 % (37.0-80.0) Lymphocytes (%) (Auto) 22.4 % (10.0-50.0) Monocytes (%) (Auto) 6.7 % (0.0-12.0) Eosinophils (%) (Auto) 0.5 % (0.0-7.0) Basophils (%) (Auto) 1.2 % (0.0-2.0) Neutrophils # (Auto) 5.7 10 ^3/uL (1.6-8.6) Lymphocytes # (Auto) 1.9 10 ^3/uL (0.4-5.4) Monocytes # (Auto) 0.6 10 ^3/uL (0-1.3) Eosinophils # (Auto) 0 10 ^3/uL (0-0.8) Basophils # (Auto) 0.1 10 ^3/uL (0-0.2) Nucleated Red Blood Cells 0.1 % Sodium Level 141 mmol/L (136-145) Potassium Level 3.6 mmol/L (3.5-5.1) Chloride Level 104 mmol/L (98-107) Carbon Dioxide Level 25 mmol/L (20-31) Anion Gap 12 (5-15) Blood Urea Nitrogen 15 mg/dL (9-23) Creatinine 0.80 mg/dL (0.550-1.02) Glomerular Filtration Rate Calc 73 mL/min (>90) BUN/Creatinine Ratio 18.8 (10.0-20.0) Serum Glucose 108 mg/dL (74-106) Calcium Level 9.8 mg/dL (8.7-10.4) Total Bilirubin 0.8 mg/dL (0.2-1.0) Aspartate Amino Transferase (AST) 33 U/L (13-40) Alanine Aminotransferase (ALT) 43 U/L (7-40) Alkaline Phosphatase 125 U/L (46-116) Total Protein 6.6 g/dL (5.7-8.2) Albumin 4.2 g/dL (3.2-4.8) Prothrombin Time 11.4 sec (9.3-11.8) Prothrombin Time INR 1.08 (0.9-1.15) Activated Partial Thromboplast Time 30.8 SEC (24.5-34.5) Urine Color Yellow (Yellow) Urine Clarity Clear (Clear) Urine pH 6.0 (5.0-9.0) Urine Specific [place] 1.019 (1.001-1.035) Urine Protein Negative (Negative) Urine Ketones Negative (Negative) Urine Blood Negative /uL (Negative) Urine Nitrite Negative (Negative) Urine Bilirubin Negative (Negative) Urine Urobilinogen Normal mg/dL (Negative) Urine Leukocyte Esterase Trace /uL (Negative) Urine RBC 1 /hpf (0 - 4) Urine Microscopic WBC 3 /HPF (0-5) Urine Squamous Epithelial Cells None seen /hpf (<5) Urine Bacteria None seen /hpf (None Seen) Urine Glucose Normal mg/dL (Normal) Other Laboratory Tests 09/29/24 05:37 Brief Hx & Hospital Course: 84-year-old female with a known history of hypertension, dyslipidemia, hypothyroidism initially presented to the hospital with the abdominal pain associated with the nausea and vomiting found to have acute rectosigmoid diverticulitis. Patient also had incidental finding of pancreatic body mass which is 1.2 cm with a hypodense ruled in IPMN no evidence of any neoplasm as per MRI confirmation. Patient is still needs to follow up with the GI in 1-2 weeks. Patient is given IV antibiotics as well as clear liquid diet advance as tolerated. Patient is currently being discharged under stable condition with close follow up as an outpatient with the PCP in 1-2 weeks follow up with GI in 1-2 weeks. Please return back to ER if abdominal pain nausea and vomiting diarrhea or any concerns. Condition at Discharge: Stable Final Diagnosis/Problems List 84-year-old female with a known history of hypertension, dyslipidemia, hypothyroidism initially presented to the hospital with the abdominal pain associated with the nausea and vomiting found t have 1. Acute rectosigmoid diverticulitis 2. Abdominal pain with the nausea secondary to 1. 3. Incidental finding of pancreatic body mass 1.2 cm with a hypodense ruled out IPMN 4. Hypertension 5. Dyslipidemia 6. Hypothyroidism 7. Transaminitis Discharge Disposition: Home with Health Services SNF Discharge Will this Physician continue t: No Discharge Instruct/Medications Diet: See Comment Diet comment: Full liquid diet for a week then advance as tolerated. Activity: No Restrictions, As Tolerated Follow Up/Referral: Follow up with the PCP in one week Follow up with the GI Dr. Rebecca Rivera in 1-2 weeks Medications: Keflex and Flagyl as prescribed. Scheduled Atenolol (Tenormin Tablet), 1 TAB PO DAILY, (Reported) Cephalexin Monohydrate (Cephalexin), 1 CAP PO TID Ciprofloxacin Hcl (Cipro), 1 TAB PO BID Famotidine (Famotidine), 10 MG PO DAILY, (Reported) Felodipine (Felodipine Er), 10 MG PO DAILY, (Reported) Levothyroxine Sodium (Synthroid Tablet), 1 TAB PO DAILY, (Reported) Lisinopril (Lisinopril), 1 TAB PO DAILY, (Reported) Metronidazole (Flagyl), 1 TAB PO TID Potassium Chloride (Potassium Chloride Cr), 1 TAB PO DAILY, (Reported) Rosuvastatin Calcium (Crestor), 1 TAB PO DAILY, (Reported) Miscellaneous Medications Hydrochlorothiazide W/Triamter (Hctz/Triamterene), 1 TAB PO, (Reported) Discharge Statement: "Patient was advised to return to the ER or call 911 if any headaches, dizziness, shortness of breath, chest pain, abdominal pain, bleeding, fevers, or worsening of medical condition. Patient was counseled about treatment plan, medications, possible side effects, patientverbalized understanding. All questions were answered to the best of my ability. This discharge took greater then 30 minutes in planning, reviewing documentation, counseling the patient, and discussing with other team members." ASSESSMENT ASSESSMENT Assessment 84-year-old female with a known history of hypertension, dyslipidemia, hypothyroidism initially presented to the hospital with the abdominal pain associated with the nausea and vomiting found t have 1. Acute rectosigmoid diverticulitis 2. Abdominal pain with the nausea secondary to 1. 3. Incidental finding of pancreatic body mass 1.2 cm with a hypodense ruled out IPMN 4. Hypertension 5. Dyslipidemia 6. Hypothyroidism 7. Transaminitis Date of Service: Sep 30, 2024 Billing Provider: MARICHUY RG MD Common Visit Codes: NOT BILLABLE MARICHUY RG MD Sep 30, 2024 16:12
[2024-09-30 16:27] VITALS: BP 148/63; TEMP 36.8
--- NOTE | 2024-09-30 16:33 | DVHPN2 ---
Progress Note - Dictate Date Seen: Sep 30, 2024 Medical Necessity Reason Pt with a Central, PICC or Fol: No Subjective No new complaints Patient is sitting up at the edge of the bed She is tolerating diet Patient had a bowel movement Abdominal pain has improved Tumor markers are normal Liver enzymes are trending down vital signs Vital Sign Date Time Temp Pulse Resp B/P (MAP) Pulse Ox O2 Delivery O2 Flow Rate FiO2 09/30/24 08:45 148/63 09/30/24 08:42 98.3 70 18 95 98.3 09/30/24 08:00 Room Air* 0 21 Total Intake and Output 09/29/24 09/29/24 09/30/24 15:00 23:00 07:00 Intake Total 950 ml 300 ml Balance 950 ml 300 ml medications Current Medications Medications Dose Ordered Sig/Steven Route Start Time Stop Time Status Last Admin Dose Admin Sodium Chloride 1,000 ml @ 120 mls/hr Q8H20M IV 09/28/24 18:15 09/30/24 11:55 120 MLS/HR Acetaminophen/ Hydrocodone Bitart 1 tab Q4HP PRN PO 09/28/24 18:15 Ondansetron HCl 4 mg Q4HP PRN IV 09/28/24 18:15 Enoxaparin Sodium 40 mg DAILY SC 09/29/24 10:00 09/30/24 08:44 40 MG Acetaminophen 650 mg Q6HP PRN PO 09/28/24 18:15 09/30/24 06:55 650 MG Morphine Sulfate 2 mg Q4HPRN PRN IV 09/28/24 18:15 Nitroglycerin 0.4 mg Q5MINP PRN SL 09/28/24 18:15 Morphine Sulfate 2 mg Q30M PRN IV 09/28/24 18:15 Ceftriaxone Sodium 50 ml @ 100 mls/hr DAILY@09 IV 09/29/24 09:00 09/30/24 08:44 100 MLS/HR Metronidazole 100 ml @ 100 mls/hr Q8HR IV 09/28/24 22:00 09/30/24 13:28 100 MLS/HR Lisinopril 40 mg DAILY PO 09/28/24 23:45 09/30/24 08:45 40 MG Hydralazine HCl 10 mg Q6HP PRN IV 09/28/24 23:45 09/30/24 01:50 10 MG objective General: NAD, AAOX3 Chest: lung carlos clear to auscultation Heart: RRR, no murmur Abdomen: non-distended, mild lower abdomen tenderness to palpation, +BS laboratory and microbiology Laboratory Tests 09/29/24 05:37 Test 09/29/24 05:37 Range/Units Serum Glucose 108 H 74-106 mg/dL MRI of the abdomen IMPRESSION: Well-defined cystic lesion in the body of the pancreas. Although direct communication with the pancreatic duct is not demonstrated there appears to be communication with a side branch of the main pancreatic duct. This is favored to reflect IPMN versus chronic pseudocyst. Neoplasm less likely. Mild wall thickening of the distal descending colon with surrounding soft tissue stranding and edema. DDX includes colitis or diverticulitis. Hepatic steatosis. Mild colonic diverticulosis. Problems(with codes): (1) Elevated liver enzymes (2) Intractable abdominal pain (3) Colitis (4) UTI (urinary tract infection) (5) Syncopal episodes (6) IPMN (intraductal papillary mucinous neoplasm) Prognosis Plan Advance diet as tolerated Discharge planning is in progress Patient was advised to maintain herself on stool softeners and eat more fiber she is going to be discharged home on antibiotics and I will consider outpatient referral for possible EUS if the size of the pancreatic cyst increases and I will continue to monitor Once again thank you for allowing me to participate in the care of this patient Plan discussed with: Patient ARLEY CHEN MD Sep 30, 2024 16:33
== END 2024-09-30 17:37 | disposition home or self-care (01) | DRG 392 ==
LOC: EDBD 16:22 → ER 16:22 → OVERFLOW 18:15 → TELE-EAST 19:43
PROVIDERS: ADMIT Internal Medicine; ATTEND Internal Medicine
DX: K57.32 Diverticulitis of large intestine without perforation or abscess without bleeding (principal); I10 Essential (primary) hypertension; E03.9 Hypothyroidism, unspecified; K76.0 Fatty (change of) liver, not elsewhere classified; E78.5 Hyperlipidemia, unspecified; K52.9 Noninfective gastroenteritis and colitis, unspecified; Z88.0 Allergy status to penicillin; Z91.041 Radiographic dye allergy status; Z90.710 Acquired absence of both cervix and uterus; Z90.49 Acquired absence of other specified parts of digestive tract
CPT/HCPCS: 36415; 74176; 74181; 80053; 81001; 82105; 82378; 85025; 85610; 85730; 86301; 96374; 97110; 97116; 97163; 97530; G0378; J2470; J3490